=== PATIENT | female | born 1985 | race Caucasian/White ===

== ENCOUNTER 2021-10-19 06:39 | Inpatient (IN) | payer OTHER ==
[~2021-10-19] VITALS: Ht 167.6 cm; Wt 112.4 kg
[~2021-10-19 06:39] MED LIST: FERROUS SU325 MG/TAB PO; IBU600 MG PO; PERCOCET 325 MG1 TA2 PO; PRENATAL1 TA7 PO
[2021-10-20] VITALS (20 sets, daily range): BP systolic 122–167; BP diastolic 65–109; PULSE 59–86; TEMP 97.4–98.1
[2021-10-20 06:07] LABS: BASO % 0.1 % (0.0-2.0); EOS # 0.1 K/mm3 (0.0-0.7); EOS % 0.5 % (0.0-4.0); GRAN # 7.1 K/mm3 (1.4-6.5); GRAN % 68.2 % (42.2-75.2); HEMOGLOBIN 12.8 g/dl (12.5-16.0); LYMPH # 2.4 K/mm3 (1.2-3.4); MEAN CELL VOLUME 87 fl (80.0-100.0); MEAN CORPUSCULAR HEMOGLOBIN 31 pg (27-31); MEAN CORPUSCULAR HGB CONC 36 g/dl (33.0-37.0); MEAN PLATELET VOLUME 11.5 fl (7.4-10.4); MONO # 0.7 K/mm3 (0.1-0.6); MONO % 6.8 % (1.7-9.3); PLATELET COUNT 140 K/mm3 (130-400); RED BLOOD COUNT 4.12 M/mm3 (4.10-5.30); REDCELL DISTRIBUTION WIDTH-CV 13.4 % (11.5-14.5)
[2021-10-20 06:08] LABS: HEMATOCRIT 35.9 % (37.0-47.0)
--- NOTE | 2021-10-20 06:15 | NUR ---
THIS NURSE AT BEDSIDE ASSESSING PT AND PREPARING FOR SCHEDULED CSECTION. CATEGORY 1 STRIP NOTED ON EFM, ACCELERATIONS NOTED. NO DECELERATIONS. BASELINE FHR 125. PT HYPERTENSIVE AND STATES SHE "HAS HAD HIGH BLOOD PRESSURE THE PAST WEEK IN THE OFFICE." WILL NOTIFY OF BP WHEN HE ARRIVES FOR SURGERY. PT REPORTS POSITIVE MOVEMENT AND DENIES LEAKING OF FLUID OR HER WATER BREAKING. EDUCATED ON PROCEDURE, CONSENTS SIGNED, LR INFUSING TO LEFT HAND IV PER ORDER. PT DENIES FURTHER QUESTIONS OR CONCERNS, STABLE CONDITION AT THIS TIME.
--- NOTE | 2021-10-20 08:40 | NUR ---
0840: PT TO PACU IN STABLE CONDITION FOLLOWING CSECTION PER . IV LABETALOL ADMINISTERED PER MANISHA FREITAS TO HELP CONTROL HYPERTENSION. FUNDUS FIRM AND 1FB ABOVE UMBILCUS. LOCHIA SCANT, NO CLOTS NOTED. ORDERING PO LABETALOL FOR FURTHER BP CONTROL. PT FULLY ALERT AND ORIENTED. DENIES NAUSEA. VITAL SIGNS STABLE. WILL CONTINUE WITH PACU RECOVERY PER PROTOCOL. 0910: PT TO FLOOR IN STABLE CONDITION AT THIS TIME. LOCHIA REMAINS SCANT, NO CLOTS NOTED. FUNDUS FIRM AT UMBILICUS. VITAL SIGNS STABLE. LEOS DRAINING CLEAR YELLOW/ESTHELA URINE. PT DENIES PAIN. WILL CONTINUE RECOVERY PER PROTOCOL. PT FULLY ALERT AND ORIENTED UPON LEAVING THE PACU. SKIN TO SKIN WITH AT THIS TIME.
[2021-10-20 10:27] LABS: ALBUMIN 2.4 gm/dL (3.5-5.0); BILIRUBIN,TOTAL 0.2 mg/dL (0.2-1.2); CALCIUM 9.1 mg/dL (8.4-10.2); CREATININE, serum 0.61 mg/dL (0.57-1.11); POTASSIUM 3.8 mmol/L (3.5-4.5); TOTAL PROTEIN 5.1 gm/dL (6.2-8.1)
--- NOTE | 2021-10-20 10:30 | NUR ---
UTERUS FIRMED WITH FUNDAL MASSAGE, NO FREE FLOW OR CLOTS NOTED
--- NOTE | 2021-10-20 19:39 | NUR ---
Report received. Plan of care reviewed. Pt in room, resting.
[2021-10-21 03:05] VITALS: BP 129/62; PULSE 87; TEMP 97.8
--- NOTE | 2021-10-21 03:13 | NUR ---
Pt resting in bed. Pt encouraged to walk in hallway as able. Pt verbalized understanding.
[2021-10-21 07:30] VITALS: BP 142/81; PULSE 78; TEMP 98
[2021-10-21] MEDS ORDERED: IBU600 MG PO (08:33)
[2021-10-21] MEDS ORDERED: TRANDATE 200MG200 MG PO (08:33)
[2021-10-21] MEDS ORDERED: PERCOCET 325 MG1 TA2 PO (08:33)
[2021-10-21 08:59] LABS: HEMOGLOBIN 9.4 g/dl (12.5-16.0)
--- NOTE | 2021-10-21 13:04 | NUR ---
[employer] offered congrats to patient and spouse.
[2021-10-21 17:13] VITALS: BP 132/61; PULSE 81; TEMP 97.8
[2021-10-21 20:00] VITALS: BP 123/56; PULSE 84; TEMP 98.5
[2021-10-22 02:00] VITALS: BP 127/68; PULSE 78; TEMP 98.5
[2021-10-22 08:30] VITALS: BP 147/76; PULSE 78; TEMP 97.8
[2021-10-22] MEDS ORDERED: MOTRIN 800800 MG/TAB PO (09:04)
[2021-10-22] MEDS ORDERED: PERCOCET 325 MG1 TA2 PO (09:04)
[2021-10-22] MEDS ORDERED: NORMODYNE200 MG PO (09:04)
== END 2021-10-22 12:35 | disposition home or self-care (01) | DRG 788 ==
LOC: OB 10-20 05:29 → LDR 10-20 06:39 → OB 10-22 12:35
PROVIDERS: ADMIT Obstetrics & Gynecology
PROC: 10D00Z1 Extraction of Products of Conception, Low, Open Approach (ICD-10-PCS; principal; 2021-10-20)
DX: O34.211 Maternal care for low transverse scar from previous cesarean delivery (principal); Z37.0 Single live birth; O24.429 Gestational diabetes mellitus in childbirth, unspecified control; O13.4 Gestational [pregnancy-induced] hypertension without significant proteinuria, complicating childbirth; O99.824 Streptococcus B carrier state complicating childbirth; O99.214 Obesity complicating childbirth; Z3A.39 39 weeks gestation of pregnancy
CPT/HCPCS: J0171; J0690; J1885; J2175; J2370; J2405; J2590; J7120